=== PATIENT | female | born 1950 | race Caucasian/White ===

== ENCOUNTER 2016-07-26 10:48 | Day surgery (SDC) | payer MEDICARE, OTHER ==
[~2016-07-26 10:48] MED LIST: ALPRAZOLAM0.25 M2 PO; ALPRAZOLAM0.25 M3 PO; AMOX TR-K CLV1 EAC4 PO; ASPIR 8181 MG PO; B COMPLEX1 CAP PO; B COMPLEX1 EAC1 PO; BENICAR20 M1 PO; BENICAR20 MG; BENICAR20 MG PO; BYSTOLIC5 M1 PO; BYSTOLIC5 MG PO; CALCIUM + VITA1 EAC4 PO; CALCIUM 1,0001 EACH PO; CALCIUM 1,2001 EACH PO; CALCIUM500 MG PO; CINNAMON500 M1 PO; CINNAMON500 MG PO; CIPRO500 M1 PO; COLACE100 MG PO; CRANBERRY500 M PO; CRANBERRY500 M2 PO; CULTURELLE1 EAC1 PO; DULCOLAX STOOL100 M1 PO; DULCOLAX STOOL100 MG PO; ELIQUIS5 M1 PO; FISH OIL SOFTGE1 CA1 PO; FLUTICASONE PRO16 G1; GLUCOPHAGE1000 M1 PO; KEFLEX500 MG PO; LEVAQUIN250 MG PO; LEVOXYL50 MC1 PO; LEVOXYL50 MCG; LEVOXYL50 MCG PO; LEXAPRO10 M2 PO; LEXAPRO20 M2 PO; LOPRESSOR25 MG/TA2 PO; MAGNESIUM200 MG PO; MAGNESIUM250 M1 PO; MAGNESIUM250 M3 PO; MAGNESIUM500 M1 PO; METOPROLOL TART25 MG PO; MOBIC15 MG; MOBIC15 MG PO; NATURAL ZINC50 MG PO; NITROQUICK0.4 MG SL; PLAVIX75 MG PO; PREDNISONE10 M1 PO; PREDNISONE10 MG; PREDNISONE10 MG PO; PREVACID15 M1 PO; PREVACID15 M2 PO; PREVACID15 MG PO; PROTONIX40 M1 PO; RESTORIL15 M1 PO; RESTORIL15 MG; RESTORIL15 MG PO; SYNTHROID50 MC1 PO; TRAMADOL HCL50 M2 PO; TRAMADOL HCL50 MG PO; TYLENOL ARTHRI650 M1 PO; TYLENOL650 MG; TYLENOL650 MG PO; VICODIN ES 7.51 EACH PO; VITAMIN D-1000 UNIT/ PO; VITAMIN D1000 UNIT PO; XANAX0.25 MG PO; XARELTO15 M1 PO; ZINC15 M1 PO; ZOFRAN ODT4 MG/UDTAB PO; ZOFRAN4 MG PO; [UNRECOGNIZED DRUG - OTHER] PO
[2016-07-26 12:07] LABS: INR 1.2 INR (0.9-1.1); PROTHROMBIN TIME 13.7 SECONDS (9.0-13.6)
== END 2016-07-26 18:30 ==
LOC: SRG 10:48 → SHSA 10:49 → ORE 14:05
PROVIDERS: Anesthesiology
PROC: 0RGU0ZZ (ICD-10-PCS; principal; 2016-07-26)
DX: M24.574 Contracture, right foot (principal); M20.41 Other hammer toe(s) (acquired), right foot; Z90.710 Acquired absence of both cervix and uterus; Z90.12 Acquired absence of left breast and nipple; Z98.890 Other specified postprocedural states; Z79.84 Long term (current) use of oral hypoglycemic drugs; Z79.01 Long term (current) use of anticoagulants; Z79.52 Long term (current) use of systemic steroids; Z79.899 Other long term (current) drug therapy
CPT/HCPCS: C1713; G8978-GP-CJ; G8979-GP-CI; G8980-GP-CJ; J0690; J1720; J2250